=== PATIENT | female | born 1995 | race African-American/Black ===

== ENCOUNTER 2017-05-13 07:16 | Inpatient (IN) | payer OTHER ==
[~2017-05-13] VITALS: Ht 165.1 cm; Wt 67.1 kg
[2017-05-13] VITALS (16 sets, daily range): BP systolic 115–135; BP diastolic 62–99
[~2017-05-13 07:16] MED LIST: ALBUTEROL17 GM IH; PREDNISONE50 MG PO
[2017-05-13 09:40] LABS: EOSINOPHIL (%) 0.4 % (0-5); EOSINOPHIL COUNT 0.1 K/uL (0-0.3); HEMATOCRIT 28.6 % (36.0-46.0); IMMATURE GRANULOCYTE (%) 0.6 % (0.0-0.7); IMMATURE GRANULOCYTE COUNT 0.1 K/uL; INSTRUMENT ABS NEUTROPHIL CT 8.6 K/uL; LYMPHOCYTE COUNT 2.3 K/uL (1.0-2.8); MCH 23.7 PG (29.0-34.0); MCHC 30.8 G/DL (30.0-36.0); MCV 76.9 FL (83-99); MEAN PLAT.VOLUME 10.4 uM^3 (9.5-12.4); MONOCYTE (%) 6.2 % (3-12); MONOCYTE COUNT 0.7 K/uL (0-0.8); NEUTROPHIL (%) 72.8 % (45-76); NEUTROPHIL COUNT 8.6 K/uL (1.8-6.4); PLATELET COUNT 275 K/uL (156-360); RBC DIS.WIDTH-CV 15.9 % (11.8-14.6); RED BLOOD COUNT 3.72 M/uL (3.80-5.20); WHITE BLOOD COUNT 11.8 K/uL (4.1-10.2)
[2017-05-14 07:16] LABS: EOSINOPHIL (%) 0.1 % (0-5); HEMATOCRIT 31.1 % (36.0-46.0); IMMATURE GRANULOCYTE (%) 0.6 % (0.0-0.7); IMMATURE GRANULOCYTE COUNT 0.1 K/uL; INSTRUMENT ABS NEUTROPHIL CT 15.5 K/uL; MCH 23.4 PG (29.0-34.0); MCHC 29.9 G/DL (30.0-36.0); MCV 78.3 FL (83-99); MEAN PLAT.VOLUME 10.6 uM^3 (9.5-12.4); MONOCYTE (%) 6.3 % (3-12); MONOCYTE COUNT 1.3 K/uL (0-0.8); NEUTROPHIL (%) 77.7 % (45-76); NEUTROPHIL COUNT 15.5 K/uL (1.8-6.4); PLATELET COUNT 297 K/uL (156-360); RBC DIS.WIDTH-SD 45.7 % (39-53); RED BLOOD COUNT 3.97 M/uL (3.80-5.20); WHITE BLOOD COUNT 19.9 K/uL (4.1-10.2)
[2017-05-14 07:27] VITALS: BP 110/73
[2017-05-14 14:51] VITALS: BP 132/79
[2017-05-15 07:20] VITALS: BP 114/66
[2017-05-15 11:29] VITALS: BP 127/69
== END 2017-05-15 14:25 | disposition home or self-care (01) | DRG 775 ==
LOC: LDRP-OP → 2WEST 07:17 → LDRP-OP 06-16 14:30
PROVIDERS: Advanced Practice Midwife
PROC: 10E0XZZ Delivery of Products of Conception, External Approach (ICD-10-PCS; principal; 2017-05-13)
PROC: 3E033VJ Introduction of Other Hormone into Peripheral Vein, Percutaneous Approach (ICD-10-PCS; principal; 2017-05-13)
PROC: 0KQM0ZZ Repair Perineum Muscle, Open Approach (ICD-10-PCS; principal; 2017-05-13)
PROC: 3E0P7GC Introduction of Other Therapeutic Substance into Female Reproductive, Via Natural or Artificial Opening (ICD-10-PCS; principal; 2017-05-13)
DX: O70.1 Second degree perineal laceration during delivery (principal); Z3A.39 39 weeks gestation of pregnancy; Z37.0 Single live birth; O99.02 Anemia complicating childbirth; O42.92 Full-term premature rupture of membranes, unspecified as to length of time between rupture and onset of labor; D50.9 Iron deficiency anemia, unspecified; O26.873 Cervical shortening, third trimester; O69.81X0 Labor and delivery complicated by cord around neck, without compression, not applicable or unspecified; O99.52 Diseases of the respiratory system complicating childbirth; J45.909 Unspecified asthma, uncomplicated
CPT/HCPCS: 85025; J0595; J7120

== ENCOUNTER 2017-06-02 02:01 | Emergency (ER) | payer OTHER ==
[~2017-06-02] VITALS: Ht 165.1 cm; Wt 58.7 kg
[2017-06-02 02:35] LABS: HEMATOCRIT 37.7 % (36.0-46.0); MCH 23.8 PG (29.0-34.0); MCHC 29.4 G/DL (30.0-36.0); MCV 80.9 FL (83-99); MEAN PLAT.VOLUME 10.3 uM^3 (9.5-12.4); PLATELET COUNT 330 K/uL (156-360); RBC DIS.WIDTH-CV 18.3 % (11.8-14.6); RBC DIS.WIDTH-SD 53.5 % (39-53); RED BLOOD COUNT 4.66 M/uL (3.80-5.20); WHITE BLOOD COUNT 7.4 K/uL (4.1-10.2)
[2017-06-02 04:57] LABS: ADD MIUA? YES; BILIRUBIN NEGATIVE; BLOOD LARGE; COLOR YELLOW ((YELLOW)); GLUCOSE (STRIP) NEGATIVE; KETONES NEGATIVE; LEUKOCYTES MODERATE; NITRITE NEGATIVE; PROTEIN (STRIP) 30; SPECIFIC GRAVITY 1.023 (1.000-1.030)
[2017-06-02 05:00] VITALS: BP 120/79
[2017-06-02 06:02] LABS: BACTERIA 1+ /HPF; CASTS NONE SEEN /LPF; CRYSTALS NONE SEEN; EPITHELIAL CELLS RARE /HPF; MUCUS 1+ /LPF; RED BLOOD CELLS TNTC /HPF (0-5); UCUL ADDED? YES
== END 2017-06-02 05:01 | disposition home or self-care (01) ==
LOC: EME 02:01
DX: O72.2 Delayed and secondary postpartum hemorrhage (principal); J45.909 Unspecified asthma, uncomplicated
CPT/HCPCS: 81003; 84702; 85027; 87086; 99281; 99283